=== PATIENT | female | born 1940 | race Hispanic/Latino ===

== ENCOUNTER 2021-02-16 10:13 | Emergency (ER) | payer OTHER, MEDICARE ==
[~2021-02-16] VITALS: Ht 154.9 cm; Wt 68.0 kg
[2021-02-16 10:33] VITALS: BP 135/71
[2021-02-16 10:49] LABS: BASOPHILS % (AUTO) 0.3 % (0.0-5.0); EOSINOPHILS % (AUTO) 0.4 % (0.0-8.0); HEMATOCRIT 30.1 % (36-48); LYMPHOCYTES % (AUTO) 8.5 % (21.0-51.0); MEAN CORPUSCULAR HEMOGLOBIN 31.4 pg (27.0-33.0); MEAN CORPUSCULAR HGB CONC 32.6 g/dL (32.0-36.0); MEAN CORPUSCULAR VOLUME 96.5 fL (79-99); MONOCYTES % (AUTO) 5.5 % (3.0-13.0); PLATELET COUNT (AUTO) 214 K/uL (130-400); RED BLOOD CELL COUNT(AUTO) 3.12 MIL/uL (4.00-5.50); RED CELL DISTRIBUTION WIDTH 12.6 % (11.0-15.5); WHITE BLOOD COUNT (AUTO) 9.9 K/uL (4.8-10.8)
[2021-02-16 11:04] LABS: ALBUMIN 3.4 g/dL (3.5-5.0); BILIRUBIN,TOTAL 0.3 mg/dL (0.2-1.0); CREATININE 3.5 mg/dL (0.5-1.5); POTASSIUM 4.4 mmol/L (3.5-5.1); TOTAL PROTEIN, SERUM 7.1 g/dL (6.0-8.3)
[2021-02-16 11:47] VITALS: BP 124/64
== END 2021-02-16 11:49 | disposition home or self-care (01) ==
LOC: EDH 10:13
DX: I10 Essential (primary) hypertension (principal); R19.7 Diarrhea, unspecified; R11.10 Vomiting, unspecified; E10.9 Type 1 diabetes mellitus without complications
CPT/HCPCS: 36415; 80053; 85025